=== PATIENT | male | born 1935 | race Caucasian/White ===

== ENCOUNTER 2016-12-09 07:43 | Day surgery (SDC) | payer MEDICARE ==
[~2016-12-09] VITALS: Ht 177.8 cm; Wt 81.7 kg
[~2016-12-09 07:43] MED LIST: 0.9% Sodium Chloride 1,000 ML IV SCH; ASPI-973 PO; SIMV20TA4 PO; Sodium Chloride LOK Flush 10 mL Syringe IV PRN; TAMS0.4C98 PO; TRAZ-115 PO; fentaNYL-PF 50 mCg/mL 2 mL Inj IVPUSH PRN
[2016-12-09 08:02] VITALS: BP 145/73; PULSE 53; RESP 14; O2SAT 99
[2016-12-09] MEDS ORDERED: PSYL1PAC10 PO (08:06)
[2016-12-09 09:10] VITALS: BP 151/80; PULSE 58; RESP 15; O2SAT 98
[2016-12-09 09:20] VITALS: BP 127/72; PULSE 54; RESP 15; O2SAT 97
--- NOTE | 2016-12-10 | ENDO ---
[address] [address] ENDOSCOPY PROCEDURE PATIENT: PATY RILEY : 1935 MR#: [id number] ADMIT: 12/09/2016 JOB ID: [id number] DATE OF PROCEDURE: 12/09/2016 PREOPERATIVE DIAGNOSIS(ES): 1. Change of bowel function. 2. Colorectal cancer screening. POSTOPERATIVE DIAGNOSIS(ES): 1. A 1-2 mm proximal transverse colon polyp. 2. A 3-4 mm proximal sigmoid colon polyp. PROCEDURE: Colonoscopy to cecum with snare polypectomy with cautery x1 and cold forceps polypectomy x1. SURGEON: Derrick Unger MD. 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 Eight years ago he had a colonoscopy that was normal. He has had a recent change of bowel function and after discussing options with the patient it was elected to proceed with a colonoscopy. FINDINGS: He had a good prep. There were small pools of turbid stool. The scope was advanced to the cecum with clear visualization of the ileocecal valve and the appendix. I was not able to intubate the terminal ileum. The scope was withdrawn over 16 minutes and 18 seconds. Two polyps were identified. A 1-2 mm polyp in the proximal transverse colon and in the proximal sigmoid colon a 3-4 mm polyp that appeared pedunculated. I am not certain that it was, but I removed it with some snare and cautery. The specimens were both retrieved and submitted as single specimens. Retroflex views of the rectum were normal. The cause of change of bowel function was not identified by this study. PROCEDURE: The procedure and sedation plan was discussed with the patient and nursing staff, and a procedural time-out was held. He received 2 mg of Versed and 75 mcg of fentanyl. A digital rectal exam was performed. Olympus PCF-H180AL video colonoscope was passed transanally, advanced to the cecum, withdrawn over 16 minutes and 18 seconds with results as stated above. The patient tolerated the procedure well. IMPRESSION: 1. Small transverse colon polyp. 2. Small sigmoid colon polyp. 3. Explanation for change of bowel function not identified by this study. RECOMMENDATIONS: Assuming these are adenomatous polyps, I would recommend a repeat colonoscopy in five years if his health is otherwise stable.
--- NOTE | 2016-12-10 11:49 | PATH ---
SURGICAL PATHOLOGY Attending Physician:Alpa Alvarez CASE STATUS: Signed Out PATIENT NAME: PATY RILEY PID: [id number] : 1935 DATE COLLECTED:12/09/2016 20:01 SPECIMEN: 1: Colon, Biopsy 2: Colon, Biopsy CLINICAL HISTORY: 1). TRANSVERSE POLYP X1 2). SIGMOID POLYP X1 FINAL DIAGNOSIS: 1.TRANSVERSE COLON POLYP: TUBULAR ADENOMA INVOLVING SINGLE BIOPSY FRAGMENT. 2.SIGMOID COLON POLYP: TUBULAR ADENOMA. ICD10 CODE D12.3 GROSS DESCRIPTION: The specimen is received in two formalin filled containers labeled with the patient's name. 1). The specimen is sublabeled "transverse polyp" and consists of 2 tiny portions of tissue which aggregate to 0.4 x 0.3 x 0.2 CM. The specimen is entirely submitted in cassette 1A. 2). The specimen is sublabeled "sigmoid polyp" and consists of a 0.5 x 0.5 x 0.4 CM portion of tissue which is entirely submitted in cassette 2A. 12/09/2016 DAC MICRO DESCRIPTION: See diagnosis. ICD-9 CODES: CPT CODES: 1: 34975 2: 51901 Electronically Signed Out Tiago Martin MD [facility] [address], [place] [address] Technical component performed at [facility], [facility] [address], [place], [address]
== END 2016-12-09 23:59 | disposition home or self-care (01) ==
LOC: END 07:43
PROVIDERS: ATTEND Surgery
DX: Z12.11 Encounter for screening for malignant neoplasm of colon (principal); D12.3 Benign neoplasm of transverse colon; D12.5 Benign neoplasm of sigmoid colon; E78.5 Hyperlipidemia, unspecified; G47.00 Insomnia, unspecified; F32.9 Major depressive disorder, single episode, unspecified; N40.0 Benign prostatic hyperplasia without lower urinary tract symptoms; Z79.82 Long term (current) use of aspirin

== ENCOUNTER 2017-01-29 12:54 | Emergency (ER) | payer MEDICARE ==
[~2017-01-29] VITALS: Ht 180.3 cm; Wt 81.8 kg
[~2017-01-29 12:54] MED LIST changes: -0.9% Sodium Chloride 1,000 ML IV SCH; +PSYL1PAC10 PO; -Sodium Chloride LOK Flush 10 mL Syringe IV PRN; -TRAZ-115 PO; -fentaNYL-PF 50 mCg/mL 2 mL Inj IVPUSH PRN
[2017-01-29 12:57] VITALS: BP 169/80; PULSE 50; RESP 20; O2SAT 98
--- NOTE | 2017-01-29 12:59 | ED.REPORT ---
HPI-Back Pain 40 and Over Date of Service Jan 29, 2017 ED Provider: John Robbins Patient is an 81 year old male who presents to the ED complaining of L flank pain without radiation onset 2 nights ago. The pain awoke him from his sleep and he has had episodes of pain that wax and wane. Associated symptoms include nausea. He denies hematuria, fever, dysuria, or any other symptoms. He takes Statin and Aspirin daily. Nursing Notes Stated Complaint: BACK/KIDNEY PAIN Chief Complaint: Back Pain or Injury Nursing Notes Reviewed: Yes Allergies: Coded Allergies: No Known Allergies (Unverified Allergy, Unknown, 01/21/14) No Known Drug Allergies (Verified Allergy, Unknown, 12/07/16) Scheduled Aspirin (Aspirin) 81 Mg Tablet 81 MG PO DAILY Simvastatin (Simvastatin) 20 Mg Tablet 20 MG PO HS Tamsulosin (Flomax) 0.4 Mg Capsule 0.4 MG PO DAILY Miscellaneous Medications Psyllium Seed (with Sugar) (Metamucil Packet) 1 Each Packet 1 EACH PO General Time Seen by MD: 12:59 Chief Complaint Flank pain left Hx Obtained From: Patient Arrived By: Walk-in Sudden in Onset?: Yes Onset Occurred: 2 days ago Similar Sx Previous: No Risk Factors )( AAA Risk Stratification Abdominal Aortic Aneurysm Risk: No Hypertension, No Smoking Risk factors reviewed )( TAD Risk Stratification No Aortic valve disease, No Hypertension, No Risk factors reviewed Past Medical History Past Medical History 2 facial basal cells Reports: Hyperlipidemia, Denies: Cancer, Coronary artery disease, Diabetes mellitus, Hypertension Past Surgical History 1 facial basal cell removal vasectomy Reports: Cholecystectomy Social History Other Social History: Good social support, , Local resident Ambulatory Status Independent Review of Systems Constitutional: Denies: Fever GI: Reports: Nausea Male: Reports Flank pain, Denies Dysuria, Denies Hematuria Complete sys rev & neg: except as marked. Physical Exam Initial Vital Signs Vital Signs (First) Date Time Temp Pulse Resp B/P Pulse Ox O2 Delivery O2 Flow Rate FiO2 01/29/17 12:57 36.2 50 20 169/80 98 Room Air Initial VS: Reviewed, Vital signs normal Head / Eyes: Atraumatic, Normocephalic Neck: Full range of motion Skin: Warm, Dry Psychiatric: Mood/affect normal, Behavior normal, Normal thought content General/Constitutional: Awake, Alert, Well developed Respiratory / Chest: Breath sounds NL, Breath sounds = bilat, No respiratory distress Cardiovascular: Heart rate NL, Regular rhythm, Heart sounds NL Abdomen: Soft, Non-tender Pain not reproducable with palpation Back: Atraumatic Neurologic: Oriented X3, Speech NL Lower Extremity / Pelvis / MS: Non-tender Trace edema at ankles Interpretation & Diagnostics Lab Results Interpretation Test 01/29/17 13:15 Urine Color Yellow (YELLOW) Urine Appearance Clear (CLEAR,HAZY) Urine pH 6.5 (5.0-8.0) Urine Specific Driscoll <1.005 (1.003-1.035) Urine Protein Negativemg/dL (NEG,TRACE) Urine Glucose (UA) Negativemg/dL (NEGATIVE) Urine Ketones Negativemg/dL (NEGATIVE) Urine Occult Blood Negative (NEGATIVE) Urine Nitrite Negative (NEGATIVE) Urine Bilirubin Negative (NEGATIVE) Urine Urobilinogen Normalmg/dL (NORMAL) Urine Leukocyte Esterase Negative (NEGATIVE) Urine RBC 0-2/hpf (0-2) Urine WBC 0-5/hpf (0-5) Urine Epithelial Cells Few/hpf (NONE-MOD) Urine Crystals None seen (NONE SEEN) Urine Bacteria Few/hpf (NONE-FEW) Urine Hyaline Casts None/lpf (NONE) Urine Granular Casts None seen (NONE SEEN) Urine Waxy Casts None seen (NONE SEEN) Urine Red Blood Cell Casts None seen (NONE SEEN) Urine White Blood Cell Casts None seen (NONE SEEN) Urine Mucus None seen (None Seen) Urine Trichomonas None seen (NONE SEEN) Urine Yeast None (NONE SEEN) Urinalysis Comment None Urine Culture Reflexed Not indicated Lab Results Interpretation: CT KUB WITHOUT CONTRAST: IMPRESSION: 1. No renal stone or hydronephrosis. 2. Markedly distended urinary bladder. Please correlate with clinical data to exclude bladder outlet obstruction. 3. Mild prominence and irregularity of the urinary bladder wall likely related to chronic inflammatory process possibly related to prostate enlargement, however finding is nonspecific and correlation with clinical and urinalysis data is recommended to exclude infectious or neoplastic etiologies. Dictated by: Andreia Banks MD, PhD on 01/29/2017 at 13:43 Approved by: Andreia Banks MD, PhD on 01/29/2017 at 13:48 Re-Eval/Medical Decision Med Decision/Clinical Course Urinalysis is frankly negative. I called Dr. Knutson to let him know and he says he will follow up with primary care this week. Re-Evaluation/Progress : Time of Eval: 01:36 Re-Evaluation/Progress Note: Rechecked patient. Discussed imaging results and plan for discharge. Patient understands and agrees with plan. All questions addressed at this time. Counseled Regarding: Diagnosis, Lab results, Need for follow-up, When/why to return to ED Discharge & Departure Impression: Primary Impression: Low back pain Chronicity: acute Back pain laterality: unspecified Sciatica presence: unspecified whether sciatica present Qualified Code: M54.5 - Low back pain Disposition: Home Discharge Condition All VS Reviewed: Yes Condition: Stable Patient Instructions: Acute Low Back Pain (ED) Additional Instructions: No definitive cause for your pain is identified. I will call you with urinalysis results in a little while. Call Dr. Emmanuel's clinic Tuesday to discuss strategies for further evaluation. Ibuprofen 800 3 times a day or naproxen 500 twice a day should be sufficient to control pain. Otherwise, go ahead and use hydrocodone/APAP 1-3 pills as needed every 6 hours. Return for uncontrollable pain. Referrals: Foreign Emmanuel MD (PCP) Scribe Attestation Portions of this note were transcribed by Ciarra Lozano. I, Dr. Robbins personally performed the history, physical exam and medical decision-making; I reviewed and confirmed the accuracy of the information in the transcribed note. Signed by: Ciarra Lozano 01/29/17, 0156 copies to: Foreign Emmanuel MD, Kirk H MD Jan 29, 2017 12:59 CIARRA LOZANO Jan 29, 2017 13:07
--- NOTE | 2017-01-29 13:49 | DRSVH ---
PROCEDURE: CT KUB ([id number]) INDICATIONS: left flank pain TECHNIQUE: Noncontrast 5 mm thick sections acquired from the diaphragms to the symphysis. 5 mm thick coronal an d sagittal reformats were then performed. For radiation dose reduction, the following was used: aut omated exposure control, adjustment of mA and/or kV according to patient size. COMPARISON: None. FINDINGS: Image quality: Excellent. Lung bases: Lung bases are clear. Heart size is normal. Urinary system: Both kidneys are normal in size. No kidney stones. No hydronephrosis or perinephri c fat stranding. Both ureters appear non-dilated throughout their expected courses. No stones identi fied in the urinary bladder. Urinary bladder wall is diffusely prominent and slightly irregular like ly due to chronic inflammatory process, however correlation with clinical and urinalysis date is abraham mmended to exclude infectious and neoplastic etiologies. Urinary bladder is markedly distended; plea se correlate for clinical signs of bladder outlet obstruction. Prostate is enlarged. Other solid organs: Liver and spleen are normal in size. Gallbladder is within normal limits. Panc reas is normal in contours. No adrenal nodules. Peritoneum and bowel: Unenhanced bowel loops demonstrate normal wall thickness and caliber. No free fluid or air. The appendix is normal. Nodes and vessels: No retroperitoneal or mesenteric adenopathy by size criteria. Aorta and inferior vena cava are normal in caliber. Scattered atherosclerotic calcifications are noted in the abdominal and pelvic vasculature. Abdominal wall: No ventral hernias. Pelvis: No free pelvic fluid. No inguinal hernias or adenopathy. Bones: No suspicious bony lesions. No vertebral body compression fractures. Spine degenerative dise ase and facet arthropathy noted. IMPRESSION: 1. No renal stone or hydronephrosis. 2. Markedly distended urinary bladder. Please correlate with clinical data to exclude bladder outle t obstruction. 3. Mild prominence and irregularity of the urinary bladder wall likely related to chronic inflammato ry process possibly related to prostate enlargement, however finding is nonspecific and correlation w ith clinical and urinalysis data is recommended to exclude infectious or neoplastic etiologies. Dictated by: Andreia Banks MD, PhD on 01/29/2017 at 13:43 Approved by: Andreia Banks MD, PhD on 01/29/2017 at 13:48
[2017-01-29 14:10] LABS: APPEARANCE,URINE CLEAR (CLEAR,HAZY); COLOR,URINE YELLOW (YELLOW); OCCULT BLOOD,URINE NEGATIVE (NEGATIVE); PH,URINE 6.5 (5.0-8.0); UROBILINOGEN,URINE NORMAL (NORMAL)
== END 2017-01-29 13:54 | disposition home or self-care (01) ==
LOC: SED 12:54
DX: M54.5 Low back pain (principal); R10.9 Unspecified abdominal pain; R11.0 Nausea; E78.5 Hyperlipidemia, unspecified; Z90.49 Acquired absence of other specified parts of digestive tract; Z85.828 Personal history of other malignant neoplasm of skin; Z79.82 Long term (current) use of aspirin

== ENCOUNTER → 2017-05-18 | Day surgery (SDC) | payer MEDICARE ==
[~2017-05-18] VITALS: Ht 180.3 cm; Wt 84.7 kg
[~2017-05-18] MED LIST changes: +CeFAZolin 2 Gm/50 mL D5W Duplex Bag IV ONE; +CeFAZolin Inj 2 GM in IV Premix 1 EACH IV ONE; +Lactated Ringer's 1,000 ML IV ONE; +Lidocaine 1%-Epi 1:100,000 20 mL Inj INFILTRATE ONE; +Lidocaine-Prilo 2.5-2.5% 5 Gm Cream TOPICAL ONE; -PSYL1PAC10 PO
--- NOTE | 2017-05-18 10:52 | PCM.HPANE ---
Patient Data Surgeon Admitting Provider: Attending Provider:Malcolm Singletary MD Primary Care Physician:Foreign Emmanuel MD Other Provider:[facility] Reason for Visit Right Upper Lip Basal Cell Carcinoma Ht/WT & BMI Height (Feet): 5 Height (Inches): 11 Weight (Kilograms): 82. Body Mass Index 25.00 Allergies Coded Allergies: No Known Drug Allergies (Verified Allergy, Unknown, 05/17/17) Past Anesthesia History Anesthesia History: Denies:: Abnormal Airway, Anesthesia Reactions, Difficult Intubation, Fam Anesthesia Reaction, Fam Malignant Hypertherm, Malignant Hyperthermia Diabetes History Hx Diabetes?: No MRSA MRSA: No Medications Blood Thinner: Aspirin Last Dose Blood Thinner: May 12, 2017 Reported Medications Simvastatin 20 Mg [id number] Mg PO QAM Ref 0 05/16/17 Tamsulosin (Flomax)0.4 Mg Capsule0.4 Mg PO DAILY Ref 0 05/16/17 Aspirin 81 Mg [id number] Mg PO DAILY Ref 0 05/16/17 History History of ENT Problems?: No HEENT History: Positive for:: Hearing Problem Denies:: Abnormal Airway Cataracts Difficult Intubation Dysphagia Glaucoma Teeth Condition: Within Normal Limits Hx of Heart Problems?: Yes Cardiovascular History: Positive for:: Irregular Heartbeat Denies:: AICD Atrial Fibrillation Cardiac Surgery Chest Pain Congestive Heart Failure Hypertension Pacemaker Valvular Heart Disease Hx of Respiratory Problem?: Yes Respiratory History: Positive for:: Tuberculosis (Positive PPD tx all clear) Denies:: Pneumonia Pulmonary Embolism Use of C-PAP Machine Use of Inhalers / NEBS Hx Neurologic Problems?: No Neurological History: Denies:: Alzheimer's Disease CVA Dementia Dizziness Headaches Multiple Sclerosis Parkinson's Disease TIA Hx of GI Problems?: No Hx of Problems?: No Male Hx: Positive for:: Prostate Problems (BPH) Denies:: Scrotal Mass Testicular Surgery (Vasectomy) Skin History: Positive for:: History Skin Disorders? ([facility] 1994, c) Denies:: Pressure Ulcers Hx Musculoskeletal Problems?: No Musculoskeletal History: Denies:: Back Injury Degenerative Joint Fibromyalgia Joint Replacement Musculoskeletal Trauma Myasthenia Gravis Osteoarthritis Rheumatoid Arthritis Hx of Psycho/Social Problems?: No Psycho Social History: Denies:: Anxiety Hx Depression Hx Surgeries?: Yes (VASECTOMY) Hx Any Other Health Problems?: Yes Other History: Positive for:: Cancer ([facility]) Denies:: Endocrine Disease Thyroid Disease History Blood Transfusions: Denies:: Accept Blood Products? Blood Transfusions Hx Diabetes: No Hx Alcohol Use: YesAlcoholic Drinks Per Day: 1-2 glasses of wine a weekHx Substance Use: No Smoking Status: Never Smoker Stop/Bang S-Snoring: Do You Snore Loudly: No T-Tired: feel tired, fatigued: No O-Obsered: Observed not breath: No P-Blood Pressure: treated: No B- Body Mass Index > 35 kg/m2: No A- Age over 50: Yes N- Neck Large Circumference: No G- Gender Male: Yes BENJAMÍN Total Score: 2 BENJAMÍN Risk Assessment: Low Risk, <3 Yes Risk Assessment Category Category 1A: Patient has history of documented sleep apnea, and HAS NOT received any narcotic, sedative or anesthesia administration during this stay. Category 1B: Patient has history of documented sleep apnea, and HAS received any narcotic , sedative or anesthesia administration during this stay Category 2: Patient has SUSPECTED Obstructive Sleep Apnea, and HAS received any narcotic , sedative or anesthesia administration during this stay. Category 3: Patient has SUSPECTED Obstructive Sleep Apnea and HAS NOT received narcotic, sedative or anesthesia administration during this stay. Category 4: Outpatient in Procedural Areas with known sleep apnea or who screen positive for High Risk via the STOP/BANG questionnaire. Exam Exam General Appearance: Alert HEENT/AIRWAY: MP 1 Lungs: Clear to Auscultation Heart: Exam Unremarkable Plan Impression Patient chart reviewed, patient interviewed and anesthestic plan with risks, benefits, and alternatives discussed, and informed consent obtained. ASA Physical Status: ASA3 Severe Disease Anesthetic Plan: MAC (GA as backup) Gertrude Arroyo MD May 18, 2017 10:52 Gertrude Arroyo MD May 18, 2017 10:52
[2017-05-18 11:01] VITALS: BP 156/79; RESP 18; O2SAT 96
[2017-05-18 12:51] VITALS: BP 164/76; PULSE 51; RESP 20; O2SAT 97
--- NOTE | 2017-05-18 13:06 | PCM.ANEPRE ---
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 Chart Reviewed by: Gertrude Horton MD May 18, 2017 13:05
--- NOTE | 2017-05-23 09:21 | OP ---
[address] [address] OPERATIVE REPORT PATIENT: PATY RILEY : 1935 MR#: [id number] ADMIT: 05/18/2017 JOB ID: [id number] DATE OF SURGERY: 05/18/2017 PREOPERATIVE DIAGNOSIS(ES): Right upper lip basal cell carcinoma. POSTOPERATIVE DIAGNOSIS(ES): Right upper lip basal cell carcinoma. PROCEDURE: 1. Excision of right upper lip basal cell carcinoma 8 mm. 2. Layered closure of right upper lip defect total length of layered closure 2.8 cm. SURGEON: Malcolm Singletary MD COMPUTER SYSTEMS MANAGER: None. ANESTHESIA: Local only. COMPLICATIONS: None apparent. SPECIMEN: 1. Right upper lip basal cell carcinoma for frozen section, which demonstrated close margin inferiorly. 2. Additional inferior margin for permanent section. INDICATIONS FOR PROCEDURE: This is an 82-year-old male patient with a biopsy-proven basal cell carcinoma of the right upper lip that was actually biopsied two years ago. At this point, the patient presented for excision of the lesion. Due to its location, elected to proceed with frozen section to clear the margin and to minimize tissue loss. PROCEDURE AND FINDINGS: The patient was identified in the preoperative area. Surgical site was marked. The patient was then taken back to the operating room and placed supine on the operating table. Appropriate time-outs were taken. At this point, the patient was prepped and draped in the usual sterile manner. Local anesthesia was infiltrated to the right upper lip consisting of 1% lidocaine with epinephrine and Marcaine. It was noted that patient has a pearly lesion on the right upper lip. The lid was marked with a marking pen. A 2 mm margin was then marked as well. The lesion was approximately 4 mm to 5 mm in diameter. Incision was then made around the margin with a #15 blade down into the underlying subcutaneous tissue. The circular piece of skin along with the lesion was removed. This was passed off to pathology with a short stitch marking superior and long stitch lateral. Pathology report demonstrated negative margins as for the inferior margin which was closed. At this point, I turned my attention back to the patient. An ellipse was then designed to encompass the defect. Inferiorly the incision was made with a #15 blade down to the subcutaneous tissue. The triangular piece of skin was then removed. I inked the true margin. This was passed off to Pathology for permanent section. The superior skin tear was also then removed with a #15 blade at the mid subcutaneous level. Once this has been done I elevated some skin flap medially and laterally to allow for mobilization of the skin flap. A 5-0 Prolene simple interrupted suture was then placed at the white roll. Once this had been done, the 4-0 Monocryl deep dermal sutures were then placed, followed by 5-0 Prolene simple running suture for final epidermal reapproximation. The patient tolerated the procedure well. Needle count, sponge count, and instrument counts were correct at the end of the procedure. The patient was transported to recovery in stable condition.
== END | disposition home or self-care (01) ==
LOC: SAS 10:45
PROVIDERS: ATTEND Plastic Surgery
DX: C44.01 Basal cell carcinoma of skin of lip (principal); N40.0 Benign prostatic hyperplasia without lower urinary tract symptoms; Z86.11 Personal history of tuberculosis; Z79.82 Long term (current) use of aspirin
CPT/HCPCS: 11640; 14060; J0690; J7120

== ENCOUNTER 2017-05-23 09:41 | Inpatient (IN) | payer MEDICARE ==
[~2017-05-23] VITALS: Ht 180.3 cm; Wt 85.8 kg
[2017-05-23] VITALS (11 sets, daily range): BP systolic 87–148; BP diastolic 51–76; PULSE 51–71; RESP 11–20; O2SAT 96–100
[2017-05-23] MEDS: Acetaminophen IV 1,000 MG in IV Premix 1 EACH IV SCH ×5 (06:00→21:00)
[2017-05-23] MEDS: CeFAZolin Inj 2 GM in IV Premix 1 EACH IV SCH ×2 (06:00→13:20)
[~2017-05-23 09:41] MED LIST changes: +Bupivacaine Liposome 1.3% 20 mL Inj INFILTRATE ONE; -CeFAZolin 2 Gm/50 mL D5W Duplex Bag IV ONE; -CeFAZolin Inj 2 GM in IV Premix 1 EACH IV ONE; -Lidocaine 1%-Epi 1:100,000 20 mL Inj INFILTRATE ONE; +Lidocaine 2% 5 mL Urojet Topical Jelly Syringe MUC_MEMBRM SCH; -Lidocaine-Prilo 2.5-2.5% 5 Gm Cream TOPICAL ONE; +SODIUM CHLORIDE 0.9% IRRIGATION ONE; +[UNRECOGNIZED DRUG - OTHER] IRRIGATION ONE
[2017-05-23 12:46] LABS: BASOPHILS % (AUTO) 0.3 % (0-3); EOSINOPHILS % (AUTO) 1.4 % (0-5); MONOCYTES % (AUTO) 7.3 % (4-12); Mean Corpuscular Hemoglobin 31.1 pg (27.0-35.0); Mean Corpuscular Volume 89.8 fL (81-100); NEUTROPHILS % (AUTO) 62.5 % (40-74); Platelet Count 132 bil/L (150-400)
[2017-05-23] MEDS ORDERED: Bupivacaine Liposome 1.3% 20 mL Inj ONE (12:53)
--- NOTE | 2017-05-23 13:41 | PCM.HPANE ---
Patient Data Surgeon Admitting Provider: Attending Provider:Cassandra Hendrix MD Primary Care Physician:Foreign Emmanuel MD Other Provider:[facility] Reason for Visit Urinary Retention URINARY RETENTION Ht/WT & BMI Height (Feet): 5 Height (Inches): 10 Weight (Kilograms): 83.46 Body Mass Index 26.00 Allergies Coded Allergies: No Known Drug Allergies (Verified Allergy, Unknown, 05/17/17) Past Anesthesia History Anesthesia History: Denies:: Abnormal Airway, Anesthesia Reactions, Difficult Intubation, Fam Anesthesia Reaction, Fam Malignant Hypertherm, Malignant Hyperthermia Diabetes History Hx Diabetes?: No MRSA MRSA: No Medications Blood Thinner: Aspirin Reported Medications Simvastatin 20 Mg [id number] Mg PO QAM Ref 0 05/16/17 Tamsulosin (Flomax)0.4 Mg Capsule0.4 Mg PO DAILY Ref 0 05/16/17 Aspirin 81 Mg [id number] Mg PO DAILY Ref 0 05/16/17 Discontinued Reported Medications Psyllium Seed (with Sugar) (Metamucil Packet)1 Each Packet1 Each PO 12/09/16 Tamsulosin (Flomax)0.4 Mg Capsule0.4 Mg PO DAILY Ref 0 12/07/16 Simvastatin 20 Mg [id number] Mg PO HS Ref 0 12/07/16 Aspirin 81 Mg Qvvbcn43 Mg PO DAILY Ref 0 12/07/16 History History of ENT Problems?: No HEENT History: Positive for:: Hearing Problem Denies:: Abnormal Airway Cataracts Difficult Intubation Dysphagia Denture Type: None Teeth Condition: Within Normal Limits Hx of Heart Problems?: Yes Cardiovascular History: Positive for:: Irregular Heartbeat (palpitations, SVT - Zio patch done 04/19/17) Denies:: AICD Atrial Fibrillation Cardiac Surgery Chest Pain Congestive Heart Failure Hypertension Pacemaker Valvular Heart Disease Hx of Respiratory Problem?: Yes Respiratory History: Positive for:: Tuberculosis (Positive PPD tx all clear) Denies:: Pneumonia Pulmonary Embolism Use of C-PAP Machine Hx Neurologic Problems?: No Neurological History: Denies:: Alzheimer's Disease CVA Dementia Dizziness Headaches Multiple Sclerosis Parkinson's Disease Hx of GI Problems?: No Hx of Problems?: No Male Hx: Positive for:: Prostate Problems (BPH- admission problem) Denies:: Scrotal Mass Testicular Surgery (Vasectomy) Skin History: Positive for:: History Skin Disorders? (chin BCC 1994, c) Denies:: Pressure Ulcers Hx Musculoskeletal Problems?: No Musculoskeletal History: Denies:: Back Injury Degenerative Joint Joint Replacement Musculoskeletal Trauma Hx of Psycho/Social Problems?: No Psycho Social History: Denies:: Anxiety Hx Depression Hx Surgeries?: Yes (VASECTOMY) Hx Any Other Health Problems?: Yes Other History: Positive for:: Cancer (BCC chin) Denies:: Endocrine Disease Thyroid Disease History Blood Transfusions: Denies:: Blood Transfusions Hx Diabetes: No Hx Alcohol Use: YesHx Substance Use: No Smoking Status: Never Smoker Stop/Bang S-Snoring: Do You Snore Loudly: No T-Tired: feel tired, fatigued: No O-Obsered: Observed not breath: No P-Blood Pressure: treated: No B- Body Mass Index > 35 kg/m2: No A- Age over 50: Yes N- Neck Large Circumference: No G- Gender Male: Yes BENJAMÍN Total Score: 2 Risk Assessment Category Category 1A: Patient has history of documented sleep apnea, and HAS NOT received any narcotic, sedative or anesthesia administration during this stay. Category 1B: Patient has history of documented sleep apnea, and HAS received any narcotic , sedative or anesthesia administration during this stay Category 2: Patient has SUSPECTED Obstructive Sleep Apnea, and HAS received any narcotic , sedative or anesthesia administration during this stay. Category 3: Patient has SUSPECTED Obstructive Sleep Apnea and HAS NOT received narcotic, sedative or anesthesia administration during this stay. Category 4: Outpatient in Procedural Areas with known sleep apnea or who screen positive for High Risk via the STOP/BANG questionnaire. Exam Exam Vital Signs Vital Signs Date Time Temp Pulse Resp B/P Pulse Ox O2 Delivery O2 Flow Rate FiO2 05/23/17 11:11 36.2 56 16 148/71 100 Room Air General Appearance: Alert, Oriented X3, Cooperative, No Acute Distress HEENT/AIRWAY: MP 2 Lungs: Clear to Auscultation, Normal Air Movement Heart: Exam Unremarkable, Regular Rate/Rhythm, No Murmurs/Rubs/Gallops Meds/Labs/Diagnostics Admission Meds Current Medications Lactated Ringer's (Lr) 1,000 ml @ 120 mls/hr Q8H20M ONCE IV Last administered on 05/23/17t 11:11; Start 05/23/17 at 05:00; Stop 05/23/17 at 13:19 Plan Impression Patient chart reviewed, patient interviewed and anesthestic plan with risks, benefits, and alternatives discussed, and informed consent obtained. ASA Physical Status: ASA3 Severe Disease Anesthetic Plan: GA, SAB Bene/Risks/Altern/Consents: Yes HP Complete Prior to Induction: Yes Cholo Reyes MD May 23, 2017 12:03
[2017-05-23] MEDS ORDERED: Lactated Ringer's 1,000 ML IV SCH (13:42)
[2017-05-23] MEDS ORDERED: Lactated Ringer's 500 ML IV PRN (13:42)
[2017-05-23] MEDS ORDERED: Atropine 0.4 mg/mL Inj IVPUSH PRN (13:45)
[2017-05-23] MEDS ORDERED: HYDROmorphone 1 mg/mL Inj IVPUSH PRN ×2 (13:45→14:50)
[2017-05-23] MEDS ORDERED: Phenylephrine 10,000 mCg/mL Inj IVPUSH PRN (13:45)
[2017-05-23] MEDS ORDERED: MetoCLOpramide 5 mg/mL 2 mL Inj IVPUSH PRN (13:45)
[2017-05-23] MEDS ORDERED: Dexamethasone 4 mg/mL Inj IVPUSH PRN (13:45)
[2017-05-23] MEDS ORDERED: fentaNYL-PF 50 mCg/mL 2 mL Inj IVPUSH PRN (13:45)
[2017-05-23] MEDS ORDERED: Ondansetron 2 mg/mL 2 mL Inj IVPUSH PRN (13:45)
[2017-05-23] MEDS ORDERED: Labetalol 5 mg/mL 20 mL Inj IV PRN (13:45)
[2017-05-23] MEDS ORDERED: EPHEDrine Sulfate 50 mg/mL Inj IVPUSH PRN (13:45)
[2017-05-23] MEDS ORDERED: Bupivacaine Liposome 1.3% 20 mL Inj INFILTRATE ONE (13:56)
[2017-05-23 14:23] LABS: APPEARANCE,URINE TURBID (CLEAR,HAZY); COLOR,URINE BLOODY (YELLOW); OCCULT BLOOD,URINE LARGE (NEGATIVE); UROBILINOGEN,URINE NORMAL (NORMAL)
[2017-05-23] MEDS ORDERED: Polyethylene Glycol (PEG) 17 Gm Powder PO PRN (14:50)
[2017-05-23] MEDS ORDERED: oxyCODONE-Acetamin 5-325 mg Tablet PO PRN (14:50)
[2017-05-23] MEDS ORDERED: Lactated Ringer's 1,000 ML IV ONE ×2 (14:53→15:19)
--- NOTE | 2017-05-23 15:24 | PCM.ANEP1 ---
Post Anesthesia PACU Phase 1 Assessment Vital Signs Vital Signs Date Time Temp Pulse Resp B/P Pulse Ox O2 Delivery O2 Flow Rate FiO2 05/23/17 11:11 36.2 56 16 148/71 100 Room Air Anesthetic Administered: SAB Level of Alertness: Awake, talking WOOD's with Equal Strength: No Pain: No Nausea or Vomiting: No CV Function & Hydration Stable: Yes Airway Device: Oxygen Delivery: Room Air Lungs: Clear to Auscultation, Normal Air Movement Dermatome Level: T8 (Costal Margin) PACU Phase 2 Assessment Complications: No Follow up Care: N/A Patient Instructions Provided: Yes Cholo Reyes MD May 23, 2017 15:24
[2017-05-23] MEDS ORDERED: Morphine PF 1 mg/mL 10 mL Inj ONE (16:45)
[2017-05-23] MEDS ORDERED: fentaNYL-PF 50 mCg/mL 2 mL Inj ONE (16:45)
--- NOTE | 2017-05-23 17:19 | NUR ---
Arrival to 1003 Patient transferred from PACU at 1630, alert and oriented and denying pain and nausea. T5 sensation from spinal anesthesia. Echevarria patent and draining trini red urine to gravity, no signs of clotting at this time. JULIUS drain on R abdomen has s/s output. Midline incision covered with gauze and tegaderm with no drainage noted. Family at bedside.
[2017-05-23] MEDS: Lactated Ringer's 1,000 ML IV SCH (17:44)
[2017-05-24] VITALS: BP 127/76; PULSE 56; RESP 16; O2SAT 99
[2017-05-24] MEDS: diphenhydrAMINE 25 mg Capsule PO PRN ×2 (00:03→09:07)
[2017-05-24] MEDS: Lactated Ringer's 1,000 ML IV SCH ×4 (01:03→22:50)
--- NOTE | 2017-05-24 02:00 | OP ---
[address] [address] OPERATIVE REPORT PATIENT: PATY RILEY : 1935 MR#: [id number] ADMIT: 05/23/2017 JOB ID: [id number] DATE OF SURGERY: PREOPERATIVE DIAGNOSIS(ES): 1. Urinary retention. 2. Benign prostatic hypertrophy. POSTOPERATIVE DIAGNOSIS(ES): 1. Urinary retention. 2. Benign prostatic hypertrophy. OPERATION PERFORMED: Simple open prostatectomy. SURGEON: Cassandra Hendrix MD BALL ASSEMBLER: TONE Wiley ANESTHESIA: Spinal. ANESTHESIOLOGIST: Cholo Reyes MD PROCEDURE SUMMARY: The patient was positioned in supine and the abdomen, genitalia, and groin were prepped and draped in sterile fashion. A 22-Angolan Echevarria catheter was inserted in the lower urinary tract. A midline infraumbilical incision was then made through the structures of the midline abdominal wall to the preperitoneal space. The anterior pelvis and the space of Retzius were then exposed using blunt technique and was extended down the lateral aspects of the prostate. Next, hemostatic bruxrc-gc-moxyw ligatures of 2-0 Biosyn were then placed distally at the dorsal venous complex and Santorini's plexus. Additional interrupted dlhfkr-bz-oclewk were placed dorsally at the proximal prostate, as well as laterally for around large tributary veins. Next, a transverse prostatotomy was performed through the capsule and the adenoma was then identified and developed using a combination of blunt and sharp dissection. The adenoma was delivered from the prostate proper and was submitted to Pathology for routine gross and microscopic examination. The prostatic defect was then packed with a lap sponge and held under pressure for about 5 minutes. Next, the bladder neck was repaired using interrupted amfhwq-ph-lknxr 2-0 Biosyn. The posterior bladder neck was then brought down distally and sutured to the capsule just proximal to the membranous urethra using a mgejoe-ok-qqabq stitch. The 22-Angolan catheter was then re-advanced into the bladder. The capsule was then closed using running 2-0 Biosyn. Hemostasis was excellent. The balloon was then filled with 30 mL and the bladder was irrigated clear. The catheter was then put to gravity drainage. Next, a 15-Angolan Ehsan drain was positioned in the space of Retzius and brought out through a separate stab incision to the right of the midline. It was sutured to the level of skin with 2-0 silk. Next, the midline rectus fascia was closed with running 0 Maxon. The subcutaneous layer was reapproximated using 2-0 Biosyn. Finally, the skin was reapproximated using a 4-0 subcuticular Monocryl. The skin surface was cleaned and dried. A Telfa pad was applied longitudinally over the incision and OpSite over this. The drain was placed to bulb self suction. The patient was then awakened, transferred to [facility], and transferred to recovery area in awake and stable condition. He tolerated the procedure well.
[2017-05-24] MEDS: Acetaminophen IV 1,000 MG in IV Premix 1 EACH IV SCH ×3 (03:00→14:57)
[2017-05-24 04:20] VITALS: BP 153/75; PULSE 65; RESP 16; O2SAT 97
[2017-05-24 05:30] LABS: Mean Corpuscular Hemoglobin 30.4 pg (27.0-35.0); Mean Corpuscular Volume 89.9 fL (81-100)
[2017-05-24] MEDS: Ketorolac 15 mg/mL Inj IVPUSH PRN ×2 (05:30→18:38)
--- NOTE | 2017-05-24 06:13 | NUR ---
Urinary output, Pain, drain Patient is alert and oriented x4, able to communicate needs. He denied pain most shift but this morning reported sudden onset pain 4/10. Patient given Toradol 15mg Iv, bladder scan done to ensure no blood clot blocking del castillo with only 12cc detected. Del Castillo draining red output mowt shift but this morning output distribution systems superintendent red/pink. Pt with good po intake and del castillo output. BP was elevated at 153/75 when checked this morning using automatic machine. But on manual it was 138/66, he remains afebrile.
[2017-05-24 09:03] VITALS: BP 133/81; PULSE 64; RESP 16; O2SAT 98
[2017-05-24 13:18] VITALS: BP 126/70; PULSE 75; RESP 18; O2SAT 97
--- NOTE | 2017-05-24 15:14 | NUR ---
Activity/Meds Pt up and oob this morning SBA, steady gait. Tolerating activity well. Pt refused all am meds. Denies pain. Urine continues to be serous sanguineous with some sediment. Encouraging oral intake. IV SL. Will continue to monitor.
--- NOTE | 2017-05-24 16:40 | NUR ---
Social Work: Initial Assessment/Readiness for D/C/Multidisciplinary Rounds D: EMR reviewed. Please see Initial Assessment linked to this note for more information. Pt is a 82 year old male admitted [place] with a readmit risk score of 1 for urinary retention per H&P. Pt's insurance is [employer]. PCP is Foreign Emmanuel MD. Urology is primary on this patient, no SW orders have been received at this time. SW met with pt at bedside to conduct initial assessment. Pt was alert and oriented x3. SW explained role and wrote phone number on white board. SW provided [facility] Discharge Planning Checklist and encouraged pt to contact SW for any discharge planning questions. Pt lives at home with spouse in [place]. Pt is independent with all ADLs at baseline. Pt uses no DME at baseline. Pt drives. Pt has no HH or SNF history. Pt has no LTC or VA benefits. Pt has DPOA on file. Pt to d/c home with to transport via POV. No anticipated d/c needs. SW will continue to follow. A: Pt who is independent at baseline and has the capacity for self-care. P: Pt anticipated to discharge home with to transport via POV. No SW needs identified, no MD orders received at this time. SW will continue to follow for needs until time of discharge. MALACHI Nixon Addendum: 05/24/17 at 1642 by LORETTA MATUTE SS Amended: Links added.
[2017-05-24 19:35] VITALS: BP 123/71; PULSE 66; RESP 17; O2SAT 96
--- NOTE | 2017-05-24 20:00 | PROG NOTE ---
[address] [address] PROGRESS NOTE PATIENT: PATY RILEY : 1935 MR#: [id number] ADMIT: 05/23/2017 JOB ID: [id number] DATE: 05/24/2017 Postoperative day #1, status post simple open prostatectomy. SUBJECTIVE: He reports overall having a quiet night other than interruptions by hospital staff, performing their duties. He had several questions concerning personal hygiene in the area of the catheter which were explained in detail and at length. He also asked that I review events and details of the operation which I gladly provided and discussed the day's plan as well as the immediate postoperative recovery plan to his satisfaction. He is tolerating a general diet. He has minimal if any discomfort. OBJECTIVE: Afebrile. Vital signs are stable. Total JULIUS output since leaving operating room 212 cc. Total urine output over the last 8 hours, 1300 cc. EXAMINATION: He is resting comfortably and sitting upright in bed. Chest is equal and unlabored bilaterally. Abdomen is soft, protuberant. Bowel sounds are active. Bladder is not distended. Echevarria indwelling with maroon outflow. Extremities: No pallor, cyanosis, clubbing. Pulses palpable in all four. LABORATORY: Hemoglobin and hematocrit are unchanged, 10.9 and 32. IMPRESSION: Stable, postoperative day number one, status post simple open prostatectomy. PLAN: 1. Increase diet and activity. 2. Follow up pathology. 3. Catheter care, use, and removal instructions for June 03.
[2017-05-25 05:05] VITALS: BP 129/72; PULSE 70; RESP 16; O2SAT 95
[2017-05-25] MEDS: Ketorolac 15 mg/mL Inj IVPUSH PRN (05:31)
--- NOTE | 2017-05-25 05:44 | NUR ---
Del Castillo/JULIUS drain Patient remains alert and oriented x4, denied pain most shift but this morning had some pelvic pain 4/10. He received Toradol 15mg and reported some relief. Del Castillo draining well, urine remains red but slightly more clear this morning. JULIUS drain with an output of 65cc serosanguineous drainage. dressing remains C,D, I. Patient slept better tonight, this morning educated on how to do del castillo catheter care and patient able to do return demonstration.
[2017-05-25] MEDS: Lactated Ringer's 1,000 ML IV SCH (06:50)
--- NOTE | 2017-05-25 10:39 | NUR ---
Discharge Pt d/c'd from [facility] room 1002 at 1040 home via private vehicle. All discharge teaching and instructions done with pt and at bedside. Pt given all supplies to take care of his Echevarria catheter. Pt given leg bag, and larger drain bag for at home use. All teaching done on Echevarria care and irrigation to use as needed. All instructions done on medications to take. Pt did not seem interested in taking any medications but teaching was done on importance of taking what is prescribed. Educated pt on pain management with Tylenol and ibuprofen. All questions and concerns addressed. IV d/c'd intact. JULIUS drain d/c'd intact. No items in the safe or pharmacy. Urology clinic to f/u with pt apt on the 03 of June.
--- NOTE | 2017-05-25 11:24 | NUR ---
Social Work- Discharge Data: EMR reviewed. Pt is on day 2 of hospitalization. Pt discharged today with catheter and drain intact. Pt independent at baseline and independent with management of catheter and drain. No discharge needs. Pt d/c home with to transport via POV. Assessment: Pt who is independent with ADLs and self-care Plan: Pt d/c home with to transport via POV. No discharge needs. MALACHI Nxion
--- NOTE | 2017-05-25 14:44 | PATH ---
SURGICAL PATHOLOGY Attending Physician:Cassandra Hendrix MD CASE STATUS: Signed Out PATIENT NAME: PATY RILEY PID: [id number] : 1935 DATE COLLECTED:05/23/2017 00:00 SPECIMEN: 1: Prostate, Radical Resection 2: Prostate, Radical Resection CLINICAL HISTORY: URINARY RETENTION 1). MEDIAN LOBE PROSTATE 2). REMAINDER OF PROSTATE FINAL DIAGNOSIS: 1. Median Lobe, Prostate (Weight 9 grams): Benign prostatic tissue with chronic prostatitis, and glandular and stromal hyperplasia. Negative for malignancy. 2. Remainder of Prostate (Weight 78 grams): Benign prostatic tissue with chronic prostatitis, and glandular and stromal hyperplasia. Negative for malignancy. ICD10: N40.1 GROSS DESCRIPTION: The specimens are received in formalin, labeled with the patient's name, and sublabeled as the following: (1) median lobe prostate; (2) remainder of prostate. (1) The specimen consists of an unoriented piece of the prostate gland (9 g, 3.5 x 3.2 x 2.0 cm). The parenchyma is le-white, rubbery and semi-translucent. No nodules, masses or lesions are identified. Ink code: black- capsule. Section code: (1A-1C) prostatic tissue, serially sectioned, accounting representative. (2) The specimen consists of a prostate gland (78 g, 6.5 x 6.0 x 4.7 cm). The seminal vesicles and vas deferens are absent. The specimen cannot be oriented. The capsule is torn and ragged with a minimal amount remaining. The parenchyma is le-white rubbery and semi-translucent. No nodules, masses or lesions are identified. Ink code: black-capsule. Section code: (2A-2F) prostate gland, serially sectioned and quartered, accounting representative; (2G-2J) one full cross-section. 05/24/17 ICD-9 CODES: CPT CODES: 1: 69814 2: 14009 Electronically Signed Out Beatriz De Leon MD [facility] Pathology [facility] [address], [place] [address] Technical component performed at [facility], [facility] [address], [place], [address]
--- NOTE | 2017-05-27 09:23 | DIS ---
[address] [address] DISCHARGE SUMMARY PATIENT: PATY RILEY : 1935 MR#: [id number] ADMIT: 05/23/2017 JOB ID: [id number] DIS: 05/25/2017 ADMITTING DIAGNOSES: 1. Urinary retention. 2. Benign prostatic hypertrophy. 3. Failure of voiding trials. DISCHARGE DIAGNOSES: 1. Urinary retention. 2. Benign prostatic hypertrophy. 3. Failure of voiding trials. PROCEDURE PERFORMED: HOSPITAL STAY IN HOSPITAL: Simple open prostatectomy. HOSPITAL SUMMARY: The patient was admitted on the morning of May 23, 2017, underwent uncomplicated simple open prostatectomy under Duramorph, spinal and general anesthesia. His postoperative course was largely unremarkable in that he tolerated a general diet immediately postoperatively, had return of bowel function by the afternoon of the first postoperative day an pain control was not an issue. On the morning of May 25, 2017, he was stable for discharge and was provided prescriptions for Cipro, oxycodone and Lovenox. He was provided routine catheter care use and removal instructions for the morning of June 03, 2017. Postoperative hygiene activity and driving restrictions and instructions were discussed at length. Pathology was pending at discharge. Follow up visit is arranged in my office for a postvoid residual volume determination on the afternoon of June 03, 2017.
== END 2017-05-25 10:40 | disposition home or self-care (01) | DRG 708 ==
LOC: SAS 09:41 → OSC 16:44
PROVIDERS: ADMIT Specialist; ATTEND Specialist
PROC: 0VT00ZZ Resection of Prostate, Open Approach (ICD-10-PCS; principal; 2017-05-23 11:45)
DX: N40.1 Benign prostatic hyperplasia with lower urinary tract symptoms (principal); R33.8 Other retention of urine